=== PATIENT | female | born 1975 | race Caucasian/White ===

== ENCOUNTER 2017-02-09 12:35 | Inpatient (IN) | payer OTHER ==
[2017-02-09] MEDS ORDERED: ONDANSETRON HCL 4 MG/2 ML 4 MG in SODIUM CHLORIDE 0.9% 100 ML 100 ML IV ONE (13:02)
[2017-02-09] MEDS ORDERED: ONDANSETRON HCL 4 MG/2 ML SOL IV ONE (13:07)
[2017-02-09] MEDS ORDERED: ONDANSETRON HCL 4 MG/2 ML SOL ONE (13:08)
[2017-02-09] MEDS ORDERED: SODIUM CHLORIDE 0.9% 1000 ML SOL IV SCH (13:15)
[2017-02-09 13:24] LABS: BASOPHILS % (AUTO) 1 % (0-3); EOSINOPHILS % (AUTO) 1 % (0-9); HEMATOCRIT 35 % (35-47); MEAN CORPUSCULAR HGB CONC 33.6 gm/dl (32.0-36.0); MEAN CORPUSCULAR VOLUME 84 fL (81-99); MONOCYTES % (AUTO) 5.4 % (0-12); NEUTROPHILS % (AUTO) 72.3 % (37-80)
[2017-02-09 13:52] LABS: CALCIUM 8.6 mg/dl (8.5-10.1)
[2017-02-09] MEDS ORDERED: ACETAMINOPHEN 500 MG 500 MG TAB PO ONE (14:21)
[2017-02-09] MEDS ORDERED: ACETAMINOPHEN 500 MG 500 MG TAB ONE (14:44)
[2017-02-09] MEDS ORDERED: WARFARIN SODIUM 5 MG TAB PO SCH ×2 (17:15→18:00)
[2017-02-09] MEDS: SODIUM CHLORIDE 0.9% 1000ML 1,000 ML IV SCH (17:29)
[2017-02-09] MEDS ORDERED: TRAZODONE HYDROCHLORIDE 50 MG TAB PO SCH (21:00)
[2017-02-09] MEDS ORDERED: ASPIRIN EC 81 MG PO SCH (21:00)
[2017-02-09] MEDS: MYCOPHENOLATE MOFETIL 500 MG PO SCH ×2 (21:41→23:01)
[2017-02-10 01:05] VITALS: RESP 16
[2017-02-10] MEDS: SODIUM CHLORIDE 0.9% 1000ML 1,000 ML IV SCH ×2 (04:16→10:19)
[2017-02-10 07:29] LABS: BASOPHILS % (AUTO) 1 % (0-3); EOSINOPHILS % (AUTO) 1 % (0-9); HEMATOCRIT 30 % (35-47); MEAN CORPUSCULAR VOLUME 84 fL (81-99); MONOCYTES % (AUTO) 6.8 % (0-12); NEUTROPHILS % (AUTO) 59.7 % (37-80)
[2017-02-10 07:35] LABS: ALBUMIN 2.6 gm/dl (3.4-5.0); CALCIUM 7.9 mg/dl (8.5-10.1); POTASSIUM 4.2 mMol/L (3.5-5.1)
[2017-02-10] MEDS ORDERED: SODIUM CHLORIDE 0.9% 1000ML 1,000 ML IV ONE (07:47)
[2017-02-10] MEDS: MYCOPHENOLATE MOFETIL 500 MG PO SCH (08:33)
[2017-02-10] MEDS ORDERED: SODIUM BICARBONATE 650 MG PO SCH (09:00)
[2017-02-10] MEDS ORDERED: SODIUM BICARBONATE 650 MG TAB PO SCH (09:45)
[2017-02-10 15:30] LABS: CALCIUM 8.1 mg/dl (8.5-10.1); POTASSIUM 4.4 mMol/L (3.5-5.1)
[2017-02-10] MEDS ORDERED: WARFARIN SODIUM 5 MG TAB PO SCH ×2 (17:11→18:00)
[2017-02-10] MEDS ORDERED: WARFARIN SODIUM 2.5 MG TAB PO ONE (18:00)
[2017-02-10 18:12] VITALS: BP 85/62; PULSE 89; TEMP 98.3; O2SAT 97
[2017-02-11] MEDS ORDERED: WARFARIN SODIUM 5 MG TAB PO ONE (18:00)
[2017-02-12] MEDS ORDERED: WARFARIN SODIUM 2.5 MG TAB PO ONE (18:00)
[2017-02-14] MEDS ORDERED: WARFARIN SODIUM 7.5 MG TAB PO SCH (18:00)
== END 2017-02-10 17:25 | disposition home or self-care (01) | DRG 684 ==
LOC: ED 12:35 → UNDOADMOB 15:15 → OBSVTOIN 15:15 → ACUTE CARE 15:15
PROVIDERS: ADMIT Family Medicine; ATTEND Family Medicine
DX: N17.9 Acute kidney failure, unspecified (principal); I15.1 Hypertension secondary to other renal disorders; N05.9 Unspecified nephritic syndrome with unspecified morphologic changes; K52.9 Noninfective gastroenteritis and colitis, unspecified; E86.0 Dehydration; N18.4 Chronic kidney disease, stage 4 (severe)
CPT/HCPCS: 36415; 80048; 80053; 85025; 85610; 96365; 96374; 99284; J2405

== ENCOUNTER 2017-02-12 15:48 | Emergency (ER) | payer OTHER ==
[2017-02-12 16:10] VITALS: RESP 16; TEMP 98.2; O2SAT 99
[2017-02-12 16:39] LABS: BASOPHILS % (AUTO) 1 % (0-3); EOSINOPHILS % (AUTO) 1 % (0-9); HEMATOCRIT 32 % (35-47); MEAN CORPUSCULAR HGB CONC 33.6 gm/dl (32.0-36.0); MEAN CORPUSCULAR VOLUME 84 fL (81-99); MONOCYTES % (AUTO) 7.9 % (0-12); NEUTROPHILS % (AUTO) 69.9 % (37-80)
[2017-02-12 17:02] LABS: ALBUMIN 3.2 gm/dl (3.4-5.0); CALCIUM 8.4 mg/dl (8.5-10.1); POTASSIUM 4.8 mMol/L (3.5-5.1)
[2017-02-12 18:57] VITALS: BP 111/63; PULSE 82
== END 2017-02-12 17:13 | disposition home or self-care (01) | DRG 392 ==
LOC: ED 15:48
DX: K52.9 Noninfective gastroenteritis and colitis, unspecified (principal)
CPT/HCPCS: 36415; 80053; 85025; 99282

== ENCOUNTER 2017-03-05 15:02 | Emergency (ER) | payer OTHER ==
[2017-03-05 16:08] LABS: BASOPHILS % (AUTO) 1 % (0-3); EOSINOPHILS % (AUTO) 2 % (0-9); HEMATOCRIT 33 % (35-47); MEAN CORPUSCULAR HGB CONC 32.9 gm/dl (32.0-36.0); MEAN CORPUSCULAR VOLUME 85 fL (81-99); MONOCYTES % (AUTO) 6.8 % (0-12); NEUTROPHILS % (AUTO) 63.3 % (37-80)
[2017-03-05 16:28] LABS: ALBUMIN 3.3 gm/dl (3.4-5.0); CALCIUM 8.9 mg/dl (8.5-10.1); POTASSIUM 3.5 mMol/L (3.5-5.1)
[2017-03-05] MEDS ORDERED: SODIUM CHLORIDE 0.9% 1000ML 1,000 ML IV ONE (16:28)
[2017-03-05] MEDS: SODIUM CHLORIDE 0.9% 1000ML 1,000 ML IV ONE ×2 (16:38)
[2017-03-05] MEDS ORDERED: SODIUM CHLORIDE 0.9% FLUSH 10 ML SOL IV PRN (16:38)
[2017-03-05] MEDS ORDERED: PIPERACILLIN/TAZOBACT 3.375 GM 3.375 GM in SODIUM CHLORIDE 0.9% 100 ML 100 ML IV ONE (16:55)
[2017-03-05] MEDS ORDERED: PIPERACILLIN/TAZOBACT 3.375 GM PDS IV ONE (16:59)
[2017-03-05] MEDS ORDERED: HYDROMORPHONE 1 MG/ML SYRINGE IV ONE (17:05)
[2017-03-05] MEDS ORDERED: HYDROMORPHONE HCL 2 MG/ML SOL ONE (17:06)
[2017-03-05 17:23] VITALS: TEMP 98.8; O2SAT 100
[2017-03-05 18:20] VITALS: BP 113/67; PULSE 90; RESP 20
== END 2017-03-05 18:03 | disposition short-term general hospital (02) | DRG 446 ==
LOC: ED 15:02
DX: K81.0 Acute cholecystitis (principal); N18.9 Chronic kidney disease, unspecified
CPT/HCPCS: 36415; 80053; 84484; 85025; 85610; 93005; 99285; J1170; J2543

== ENCOUNTER 2017-03-07 17:15 | Emergency (ER) | payer OTHER ==
[2017-03-07 17:25] VITALS: BP 126/75; PULSE 111; RESP 20; TEMP 97.5; O2SAT 99
[2017-03-07] MEDS ORDERED: LIDOCAINE 1% W/EPI MPF 10 ML SOL ONE (17:34)
[2017-03-07] MEDS ORDERED: BACITRACIN 500 U/GM OIN TOP ONE (17:48)
== END 2017-03-07 18:02 | disposition home or self-care (01) | DRG 605 ==
LOC: ED 17:15
DX: S61.012A Laceration without foreign body of left thumb without damage to nail, initial encounter (principal); Z79.01 Long term (current) use of anticoagulants; W26.0XXA Contact with knife, initial encounter
CPT/HCPCS: 99283

== ENCOUNTER 2017-07-27 04:38 | Emergency (ER) | payer OTHER ==
[2017-07-27] MEDS ORDERED: SODIUM CHLORIDE 0.9% FLUSH 10 ML SOL IV PRN (04:45)
[2017-07-27] MEDS ORDERED: NITROGLYCERIN 0.4 MG TAB SL PRN (04:45)
[2017-07-27] MEDS ORDERED: ASPIRIN 81 MG CHEWABLE CTB PO STA (04:45)
[2017-07-27] MEDS ORDERED: ASPIRIN 81 MG CHEWABLE CTB ONE ×2 (04:55→04:56)
[2017-07-27] MEDS ORDERED: NITROGLYCERIN 0.4 MG TAB SL ONE (04:57)
[2017-07-27 05:18] LABS: BASOPHILS % (AUTO) 1 % (0-3); EOSINOPHILS % (AUTO) 0 % (0-9); HEMATOCRIT 39 % (35-47); MEAN CORPUSCULAR HGB CONC 34.3 gm/dl (32.0-36.0); MONOCYTES % (AUTO) 5.5 % (0-12)
[2017-07-27 05:22] LABS: MEAN CORPUSCULAR VOLUME 80 fL (81-99)
[2017-07-27 05:32] LABS: CALCIUM 8.4 mg/dl (8.5-10.1); GLOM FILT RATE 17 mL/min (>60); POTASSIUM 3.1 mMol/L (3.5-5.1); SODIUM 137 mMol/L (136-145)
[2017-07-27 05:50] LABS: BILIRUBIN,URINE NEGATIVE (NEGATIVE); COLOR,URINE Yellow; GLUCOSE, URINE (UA) NEGATIVE (NEGATIVE); KETONES,URINE NEGATIVE (NEGATIVE); LEUKOCYTE ESTERASE ,URINE NEGATIVE (NEGATIVE); NITRATE,URINE NEGATIVE (NEGATIVE); OCCULT BLOOD,URINE 2+ (NEG-TRACE); UROBILINOGEN,URINE 0.2 (0.2-1.0 EU)
[2017-07-27 05:57] LABS: APPEARANCE,URINE CLOUDY; RBC,URINE 0-3 (0-3AV/HPF)
[2017-07-27] MEDS ORDERED: LORAZEPAM 2 MG/ML 10ML MDV 2 MG/ML VIAL IV PRN (06:20)
[2017-07-27] MEDS ORDERED: LORAZEPAM 2 MG/ML SOL ONE (06:22)
[2017-07-27 09:33] VITALS: BP 143/93; PULSE 105; RESP 14; TEMP 98; O2SAT 98
== END 2017-07-27 09:25 | disposition home or self-care (01) | DRG 313 ==
LOC: ED 04:38
DX: R07.9 Chest pain, unspecified (principal); I25.2 Old myocardial infarction; Z86.711 Personal history of pulmonary embolism; Z79.01 Long term (current) use of anticoagulants
CPT/HCPCS: 36415; 71045; 80048; 81001; 82550; 84484; 85025; 85378; 85610; 85730; 87077; 87088; 87186; 93005; 99285; J2060; A9270-GY

== ENCOUNTER 2018-09-20 22:49 | Emergency (ER) | payer OTHER ==
[2018-09-20 23:55] VITALS: TEMP 97.5
[2018-09-21 01:57] VITALS: RESP 16
[2018-09-21 01:58] VITALS: O2SAT 99
[2018-09-21 01:59] VITALS: BP 146/88; PULSE 92
== END 2018-09-21 00:11 | disposition home or self-care (01) | DRG 920 ==
LOC: ED 22:49
DX: T85.611A Breakdown (mechanical) of intraperitoneal dialysis catheter, initial encounter (principal); N18.4 Chronic kidney disease, stage 4 (severe); Z79.01 Long term (current) use of anticoagulants; E11.22 Type 2 diabetes mellitus with diabetic chronic kidney disease
CPT/HCPCS: 99283